=== PATIENT | male | born 1980 | race Caucasian/White ===

== ENCOUNTER 2017-01-20 23:03 | Emergency (ER) | payer SELFPAY ==
[~2017-01-20] VITALS: Ht 172.7 cm; Wt 81.2 kg
--- NOTE | 2017-01-20 23:17 | NUR ---
BB NEIGHBOR; PT C/O "UNCONTROLABLE SHIVERS, BACK SPASM X 1 DAY" PT AOX3 RR EVEN AND UNLABORED. NO SOB NOTED. NAD NOTED. NO NVD AT THIS TIME. PT GOWNED AND PLACED ON MONITOR WAITING FOR MD GOSS.
--- NOTE | 2017-01-20 23:23 | NUR ---
URINE COLLECTED. CALLED LAB FOR CONTRACT MANAGEMENT SPECIALIST.
[2017-01-20] MEDS ORDERED: LORAZEPAM 1 MG TABLET ONE (23:47)
--- NOTE | 2017-01-20 23:48 | NUR ---
IV STARTED ON LEFT AC 20G, GOOD BLOOD RETURN, LABS DRAWN AND SENT TO LAB
--- NOTE | 2017-01-20 23:50 | NUR ---
XRAY AT BEDSIDE
[2017-01-20 23:55] LABS: BASOPHILS % (AUTO) 0.1 % (0.0-2.0); EOSINOPHILS # (AUTO) 0.1 /CMM (0.0-0.7); EOSINOPHILS % (AUTO) 1.3 % (0.0-6.0); HEMATOCRIT 39 % (39-51); HEMOGLOBIN 13.1 g/dL (13.5-17.5); LYMPHOCYTES % (AUTO) 11.3 % (20.0-44.0); MEAN CORPUSCULAR HEMOGLOBIN 30 PG (26.0-33.0); MEAN CORPUSCULAR HGB CONC 34 g/dl (31.0-36.0); MEAN CORPUSCULAR VOLUME 89 fL (80-96); MONOCYTES % (AUTO) 0.5 % (2.0-12.0); NEUTROPHILS # (AUTO) 7.4 /CMM (1.8-8.9); NEUTROPHILS % (AUTO) 86.8 % (43.0-81.0); PLATELET COUNT (AUTO) 185 /CMM (150-450); RDW COEFFICIENT OF VARIATION 14.3 (11.5-15.0); RED BLOOD CELL COUNT(AUTO) 4.39 MIL/uL (4.5-6.0); WHITE BLOOD COUNT (AUTO) 8.6 K/uL (4.3-11.0)
[2017-01-21] MEDS ORDERED: LORAZEPAM 1 MG TABLET PO ONE
[2017-01-21 00:05] LABS: CALCIUM, SERUM 8.8 mg/dL (8.5-10.1); CARBON DIOXIDE 28 mmol/L (21-32); CHLORIDE 102 mmol/L (98-107); CREATININE 1.3 mg/dL (0.6-1.3); GLUCOSE 115 mg/dL (74-106); POTASSIUM 3.7 mmol/L (3.5-5.1); SODIUM SERUM 139 mmol/L (136-145); UREA NITROGEN, BLOOD 21 mg/dL (7-18)
[2017-01-21 00:08] LABS: INR 0.93 (0.87-1.13); PROTHROMBIN TIME 9.7 SECS (9.5-12.7)
[2017-01-21 00:13] LABS: TROPONIN I < 0.017 ng/mL (0.00-0.056)
[2017-01-21 00:21] LABS: APPEARANCE,URINE CLEAR (CLEAR); BILIRUBIN,URINE NEGATIVE (NEGATIVE); BLOOD, URINE NEGATIVE Ery/uL (NEGATIVE); COLOR,URINE YELLOW (YELLOW); KETONES,URINE NEGATIVE (NEGATIVE); LEUKOCYTE ESTERASE ,URINE NEGATIVE (NEGATIVE); NITRITE, URINE NEGATIVE (NEGATIVE); PH,URINE 6.5 (5.0-8.0); PROTEIN,URINE NEGATIVE (NEGATIVE); UGLUCOSE NEGATIVE (NEGATIVE); UROBILINOGEN,URINE 0.2 EU/dL (0.2)
--- NOTE | 2017-01-21 00:23 | NUR ---
PER MD, IV removed. Catheter intact and site benign. Pressure and 4x4 applied to site. No bleeding noted.
--- NOTE | 2017-01-21 00:52 | NUR ---
Patient discharged to home in stable condition. Written and verbal after care instructions given. Patient verbalizes understanding of instruction. ambulatory with a steady gait. instructed pt not to drive. pt verbalize understanding. pt accompanied by neighbor.
[2017-01-21 00:54] VITALS: BP 116/68
== END 2017-01-21 00:54 | disposition home or self-care (01) ==
LOC: ER 23:09
DX: F15.10 Other stimulant abuse, uncomplicated (principal); R09.89 Other specified symptoms and signs involving the circulatory and respiratory systems; R79.1 Abnormal coagulation profile
CPT/HCPCS: 36415; 71010; 80048; 80305; 81001; 84484; 85025; 85730; 93005; 99285; A4606; Z7610; 81000-TC